=== PATIENT | female | born 1990 | race Caucasian/White ===

== ENCOUNTER 2021-06-10 10:26 | Outpatient (REF) | payer OTHER, SELFPAY | END 2021-06-10 10:27 | disposition home or self-care (01) | LOC: HO.LAB 10:26 | PROVIDERS: Visit Provider Obstetrics & Gynecology | DX: N87.1 Moderate cervical dysplasia (principal) | CPT/HCPCS: 57454; 88305; 88342; 88360 ==

== ENCOUNTER 2021-06-16 12:31 | Outpatient (REF) | payer OTHER, SELFPAY | END 2021-06-16 12:32 | disposition home or self-care (01) | LOC: HO.LAB 12:31 | PROVIDERS: Visit Provider Obstetrics & Gynecology | DX: D06.9 Carcinoma in situ of cervix, unspecified (principal) | CPT/HCPCS: 57500; 88305 ==

== ENCOUNTER 2021-06-26 04:50 | Outpatient (REF) | payer OTHER, SELFPAY ==
--- NOTE | ~2021-06-26 | XR_ITS ---
EXAMINATION: XR ANKLE, LEFT CLINICAL INFORMATION: Fall. Injury. COMPARISON: None TECHNIQUE: AP, lateral, and mortise views of the left ankle. FINDINGS: No fracture or dislocation. The ankle mortise is congruent. Lateral soft tissue swelling. Small ankle joint effusion. XR/XR ankle LT min 3V IMPRESSION: Lateral soft tissue swelling. No acute fracture or malalignment.
== END 2021-06-26 04:51 | disposition home or self-care (01) ==
LOC: HO.ED 04:50
PROVIDERS: Visit Provider Emergency Medicine
DX: S99.912A Unspecified injury of left ankle, initial encounter (principal); W18.30XA Fall on same level, unspecified, initial encounter; Y93.9 Activity, unspecified; Y92.9 Unspecified place or not applicable; Y99.8 Other external cause status
CPT/HCPCS: 73610

== ENCOUNTER 2021-07-03 18:38 | Outpatient (REF) | payer OTHER, SELFPAY ==
[2021-07-03 19:06] LABS: COVID-19 Test Negative (Negative)
== END 2021-07-03 18:39 | disposition home or self-care (01) ==
LOC: HO.LAB 18:38
PROVIDERS: Visit Provider Internal Medicine
DX: Z20.822 Contact with and (suspected) exposure to COVID-19 (principal)
CPT/HCPCS: 36415; 87635

== ENCOUNTER 2021-07-07 21:08 | Outpatient (REF) | payer OTHER, SELFPAY ==
[2021-07-07 21:35] LABS: COVID-19 Test Negative (Negative)
== END 2021-07-07 21:09 | disposition home or self-care (01) ==
LOC: HO.LAB 21:08
PROVIDERS: Visit Provider Internal Medicine
DX: Z20.822 Contact with and (suspected) exposure to COVID-19 (principal)
CPT/HCPCS: 36415; 87635

== ENCOUNTER → 2021-07-15 08:07 | Outpatient (BNVA) | payer OTHER, SELFPAY | PROVIDERS: Visit Provider Obstetrics & Gynecology ==

== ENCOUNTER 2021-07-18 08:29 | Day surgery (SDC) | payer OTHER, SELFPAY ==
[2021-07-08 13:39] VITALS: BMI 34.8
--- NOTE | 2021-07-17 12:08 | HO.ANESPROP2 ---
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 Surgical History Surgical History (Updated 07/18/21 @ 09:19 by Luz Wade RN) H/O LEEP Hx of tonsillectomy [place] teeth extracted Social History Social History Patient Tobacco Use Status: Never used Tobacco Advance Directives: No Advance Directives Information Provided: No (informational brochure mailed) Advance Directives on File: No Meds Allergies Allergy/AdvReac Type Severity Reaction Status Date / Time Penicillins Allergy Intermediate rash Verified 07/18/21 09:21 sulfamethoxazole Allergy Unknown Unknown Verified 07/18/21 09:21 [From Bactrim] trimethoprim [From Bactrim] Allergy Unknown Unknown Verified 07/18/21 09:21 Home Medications Medication Instructions Recorded Confirmed Last Taken Type bupropion HCl 300 mg 24 hr tablet, 300 mg PO QAM 06/10/21 Unknown History extended release (Wellbutrin XL) fluoxetine 20 mg capsule (Prozac) 20 mg PO DAILY 07/15/21 Unknown History Exam Exam Date and Time: July 17, 2021 1208 Height,Weight and Vital Signs: Height 5 ft 4 in Weight 92 kg Assessment and Plan Assessment Anesthesia Assessment: Chart Reviewed Documented by User: Hong Jose 07/18/21 09:57 PMFSH Past Medical History Medical History (Updated 07/18/21 @ 09:18 by Luz Wade RN) Anxiety Depression 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 Functional capacity: independent ambulation Family History Family history of problems with anesthesia: No Surgical History Surgical History (Updated 07/18/21 @ 09:19 by Luz Wade, RN) H/O LEEP Hx of tonsillectomy [place] teeth extracted History of Problems with Anesthesia: Yes (Ponv ) Social History Social History Patient Tobacco Use Status: Never used Tobacco Advance Directives: No Advance Directives Information Provided: No (informational brochure mailed) Advance Directives on File: No Meds Allergies Allergy/AdvReac Type Severity Reaction Status Date / Time Penicillins Allergy Intermediate rash Verified 07/18/21 09:21 sulfamethoxazole Allergy Unknown Unknown Verified 07/18/21 09:21 [From Bactrim] trimethoprim [From Bactrim] Allergy Unknown Unknown Verified 07/18/21 09:21 Home Medications Medication Instructions Recorded Confirmed Last Taken Type bupropion HCl 300 mg 24 hr tablet, 300 mg PO QAM 06/10/21 Unknown History extended release (Wellbutrin XL) fluoxetine 20 mg capsule (Prozac) 20 mg PO DAILY 07/15/21 Unknown History Exam Airway Mallampati Class: II Neck ROM: Full Loose/Missing/Broken Teeth: Yes (Implants ) Heart: rrr Lungs: bl breath sounds Assessment and Plan Final Anesthetic Review Family History of Problems with Anesthesia: No History of Problems with Anesthesia: Yes (Ponv ) NPO: Yes ASA Class: II Patient Risk: Intermediate Procedure Risk: Intermediate Anesthetic Plan Disposition: Standard PACU
[2021-07-18] VITALS (8 sets, daily range): BP systolic 96–112; BP diastolic 50–72; PULSE 81–97; RESP 14–17; TEMP 36.1–36.5; O2SAT 95–100
[2021-07-18 09:05] LABS: UPreg QC Valid YES; Urine Pregnancy NEGATIVE (NEGATIVE)
--- NOTE | 2021-07-18 09:22 | MHC.SHP ---
Pre-Procedural Eval Section A Date of Service: 07/18/21 The patient is an INPATIENT: No Changes since office visit: No Cold of Flu in the past 2 weeks, No New Medical Problems, No Changes in Medication and No Patient answered all questions The History & Physical has been completed within 30 days and I have reviewed it.: Yes Section B Chief Complaint: MONO 3 Allergies: Allergies Allergy/AdvReac Type Severity Reaction Status Date / Time Penicillins Allergy Intermediate rash Verified 07/18/21 09:21 sulfamethoxazole Allergy Unknown Unknown Verified 07/18/21 09:21 [From Bactrim] trimethoprim [From Bactrim] Allergy Unknown Unknown Verified 07/18/21 09:21 Plan Diagnosis/Plan: Unchanged I have reviewed the history and physical and performed a pertinent physical examination on my patient. No changes have occurred unless specified.
[2021-07-18] MEDS: Lactated Ringers 1,000 ML 100 ML IVCONT (09:50)
--- NOTE | 2021-07-18 10:57 | PM.OP ---
Brief Operative Note Date of Service: 07/18/21 Pre-op diagnosis: MONO 2-3 Post-op diagnosis: same Procedure: LEEP CONE with post CONE ECC Surgeon: Romel Red MD Anesthesia: local and other (Paracervical block) Was an Steward/Stewardess Second [employer] used for this Procedure?: No Estimated blood loss (mL): 0 Pathology: other (Cervical cone, post cone 2nd pass Ant Cerv lip, Endocx) Condition: stable Disposition: other (Home)
--- NOTE | 2021-07-18 10:58 | P.OP_ITS ---
Operative Note Operative Note Date of Service: 07/18/21 Narrative: Preop diagnosis: MONO 2-3 Operation: LEEP Cone with post cone ECC Post op diagnosis: same Anesthesia: IV sedation and paracervical block Complications: none Pathology: Cervical cone, post cone 2nd pass Anterior cervical lip , endocervix QBL: minimal Procedure: The patient was put in the dorsal lithotomy position, was prepped and draped in the usual sterile fashion. A sterile speculum was inserted inside the patie nt vagina. Using Lugol solution the cervix with Dyed with Lugol solution to identifiy the abnormal demarcating line. 10 cc of Marcaine 0.5% with epinephrine were given at 2,4 , 8, and 10 o'clock. Using a medium-size loop wire, the cervical cone was excised followed by post cone 2nd pass anterior cervical lip and endocervix was done afterwards. Hemostasis was assured using cautery and Monsel solution. All instruments were taken out of the patient's vaginal cavity. the patient tolerated the procedure well and was discharged home with the following instructions: call if temperature is above 100.4, vaginal bleeding, abdominal pain or nausea or vomiting. Follow-up in the office in 2 weeks for postop visit
== END 2021-07-18 12:28 | disposition home or self-care (01) ==
PROVIDERS: Nurse Practitioner; Visit Provider Obstetrics & Gynecology
PROC: 0UBC7ZZ Excision of Cervix, Via Natural or Artificial Opening (ICD-10-PCS; CPT 57522; principal; 2021-07-18 10:30)
DX: D06.9 Carcinoma in situ of cervix, unspecified (principal); Z88.0 Allergy status to penicillin
CPT/HCPCS: 57522; 81025; 88305; 88307; J1100; J2250; J2405; J3010

== ENCOUNTER 2021-07-30 08:03 | Outpatient (REF) | payer OTHER, SELFPAY ==
[2021-07-30 15:50] LABS: CT PCR NOT DETECTED (Not Detect.); NG PCR NOT DETECTED (Not Detect.)
[2021-07-31 12:13] LABS: BV Int Neg Control Negative (Negative); BV Int Pos Control Positive (Positive)
== END 2021-07-30 08:04 | disposition home or self-care (01) ==
LOC: HO.LAB 08:03
PROVIDERS: Visit Provider Obstetrics & Gynecology
DX: Z01.411 Encounter for gynecological examination (general) (routine) with abnormal findings (principal); D06.9 Carcinoma in situ of cervix, unspecified; N76.0 Acute vaginitis; B96.89 Other specified bacterial agents as the cause of diseases classified elsewhere; Z20.2 Contact with and (suspected) exposure to infections with a predominantly sexual mode of transmission
CPT/HCPCS: 87480; 87491; 87510; 87591; 87660

== ENCOUNTER 2021-08-17 05:32 | Outpatient (REF) | payer OTHER, SELFPAY ==
[2021-08-17 06:03] LABS: COVID-19 Test Negative (Negative)
== END 2021-08-17 05:33 | disposition home or self-care (01) ==
LOC: HO.LAB 05:32
PROVIDERS: Visit Provider Internal Medicine
DX: Z20.822 Contact with and (suspected) exposure to COVID-19 (principal)
CPT/HCPCS: 87635

== ENCOUNTER 2021-08-20 20:10 | Outpatient (REF) | payer OTHER, SELFPAY ==
[2021-08-20 20:41] LABS: COVID-19 Test Negative (Negative)
== END 2021-08-20 20:11 | disposition home or self-care (01) ==
LOC: HO.LAB 20:10
PROVIDERS: Visit Provider Internal Medicine
DX: Z20.822 Contact with and (suspected) exposure to COVID-19 (principal)
CPT/HCPCS: 87635